=== PATIENT | female | born 1985 | race African-American/Black ===

== ENCOUNTER 2017-01-29 10:01 | Emergency (ER) | payer MEDICARE | END 2017-01-29 13:26 | disposition home or self-care (01) | LOC: D.ER 10:01 | DX: S29.012A Strain of muscle and tendon of back wall of thorax, initial encounter (principal); X58.XXXA Exposure to other specified factors, initial encounter; Y93.89 Activity, other specified; Y92.029 Unspecified place in mobile home as the place of occurrence of the external cause; F17.200 Nicotine dependence, unspecified, uncomplicated ==

== ENCOUNTER 2017-03-29 09:12 | Emergency (ER) | payer MEDICARE | END 2017-03-29 10:07 | disposition home or self-care (01) | LOC: D.ER 09:12 | DX: J02.9 Acute pharyngitis, unspecified (principal) ==

== ENCOUNTER 2018-12-16 20:18 | Emergency (ER) | payer MEDICARE ==
[~2018-12-16] VITALS: Ht 149.9 cm; Wt 105.0 kg
[2018-12-16 20:29] VITALS: Ht 149.9 cm; Wt 105.0 kg
[2018-12-16] MEDS ORDERED: IBUPROFEN600 MG PO (20:31)
[2018-12-16 20:46] VITALS: BP 130/78
[2018-12-16] MEDS ORDERED: NYSTATIN15 GM TOPICAL (21:19)
== END 2018-12-16 21:37 | disposition home or self-care (01) ==
LOC: D.ER 20:18
DX: O98.83 Other maternal infectious and parasitic diseases complicating the puerperium (principal); B37.2 Candidiasis of skin and nail

== ENCOUNTER 2019-03-26 20:16 | Emergency (ER) | payer MEDICARE ==
[~2019-03-26] VITALS: Ht 149.9 cm; Wt 97.7 kg
[~2019-03-26 20:16] MED LIST: IBUPROFEN600 MG PO; NYSTATIN15 GM TOPICAL
[2019-03-26 20:21] VITALS: Ht 149.9 cm; Wt 97.7 kg
[2019-03-26] MEDS ORDERED: VOLTAREN75 MG PO (20:55)
[2019-03-26] MEDS ORDERED: PROTONIX20 MG PO (20:55)
[2019-03-26 21:14] VITALS: BP 115/72
== END 2019-03-26 21:14 | disposition home or self-care (01) ==
LOC: D.ER 20:16
DX: M54.5 Low back pain (principal)

== ENCOUNTER 2020-06-09 18:28 | Emergency (ER) | payer MEDICARE ==
[~2020-06-09] VITALS: Ht 149.9 cm; Wt 97.7 kg
[~2020-06-09 18:28] MED LIST changes: +PROTONIX20 MG PO; +VOLTAREN75 MG PO
[2020-06-09 18:34] VITALS: BP 130/84; Ht 149.9 cm; Wt 97.7 kg
[2020-06-09] MEDS ORDERED: PENICILLIN V P500 MG PO (18:49)
[2020-06-09] MEDS ORDERED: ULTRAM50 MG PO (18:49)
== END 2020-06-09 19:09 | disposition home or self-care (01) ==
LOC: D.ER 18:28
DX: K08.89 Other specified disorders of teeth and supporting structures (principal)